=== PATIENT | male | born 1960 | race Caucasian/White ===

== ENCOUNTER → 2020-12-05 | Outpatient (CLI) | payer MEDICARE, OTHER ==
[~2020-12-05] MED LIST: ALLEGRA-D 12 H1 EACH PO; AMLODIPINE BESY10 MG PO; ANORO ELLIPTA1 EACH INH; ASPIRIN 325MG325 MG PO; BREO ELLIPTA 21 EACH INH; BUDESONIDE0.5 MG/2 M NEB; CYCLOBENZAPRINE10 MG PO; DEPO-TESTO200 MG/1 M IM; FLOMAX 0.4 MG0.4 MG PO; FUROSEMIDE20 MG PO; HYDROCHLOROTHIA25 MG PO; HYDROCODON-ACE1 EAC6 PO; IBUPROFEN800 MG PO; IPRAT-ALBUT 0.5-3 ML NEB; ISOSORBIDE MONO30 MG PO; ISOSORBIDE MONO60 MG PO; LEVOTHYROXINE88 MCG PO; LISINOPRIL40 MG PO; LOPRESSOR 25 MG25 MG PO; METFORMIN HCL1000 M1 PO; NITROSTAT0.4 MG SL; PANTOPRAZOLE SO40 MG PO; RESTORIL 30 MG30 MG PO; SIMVASTATIN20 MG PO; TESTOSTERO200 MG/1 M IM; VITAMIN D21250 MCG PO; ZOFRAN4 MG PO; ZYLOPRIM 300 M300 MG PO; ZYRTEC-D TABLE1 EACH PO
== END ==
LOC: HEART 5 10:15
DX: R06.02 Shortness of breath (principal); R94.2 Abnormal results of pulmonary function studies
CPT/HCPCS: 94010; 94729

== ENCOUNTER 2021-02-14 08:39 | Emergency (ER) | payer MEDICARE, OTHER ==
[~2021-02-14 08:39] MED LIST changes: -ANORO ELLIPTA1 EACH INH; -ASPIRIN 325MG325 MG PO; -FLOMAX 0.4 MG0.4 MG PO; -FUROSEMIDE20 MG PO; -ISOSORBIDE MONO30 MG PO; -ISOSORBIDE MONO60 MG PO; -METFORMIN HCL1000 M1 PO; -NITROSTAT0.4 MG SL; -RESTORIL 30 MG30 MG PO; -TESTOSTERO200 MG/1 M IM; -VITAMIN D21250 MCG PO
[2021-02-14 09:25] LABS: HEMOGLOBIN 15.1 gm/dl (14.0-17.5); RED BLOOD COUNT 4.99 M/UL (4.20-5.50); WHITE BLOOD COUNT 5.8 K/UL (4.5-11.0)
[2021-02-14 09:47] LABS: BUN/CREATININE RATIO 13 (0-10)
[2021-02-14] MEDS ORDERED: ANORO ELLIPTA1 EACH INH (12:14)
[2021-02-14] MEDS ORDERED: RESTORIL 30 MG30 MG PO (12:15)
[2021-02-14] MEDS ORDERED: ASPIRIN 325MG325 MG PO (13:20)
[2021-02-14] MEDS ORDERED: FLOMAX 0.4 MG0.4 MG PO (13:21)
[2021-02-14] MEDS ORDERED: VITAMIN D21250 MCG PO (13:22)
[2021-02-14] MEDS ORDERED: TESTOSTERO200 MG/1 M IM (13:25)
== END 2021-02-14 13:50 | disposition left against medical advice (07) ==
LOC: ER1 08:39 → CDU 10:29
PROVIDERS: Physician Assistant
DX: R07.89 Other chest pain (principal); E11.9 Type 2 diabetes mellitus without complications; K21.9 Gastro-esophageal reflux disease without esophagitis; Z20.822 Contact with and (suspected) exposure to COVID-19; I10 Essential (primary) hypertension; J44.9 Chronic obstructive pulmonary disease, unspecified; Z90.49 Acquired absence of other specified parts of digestive tract; Z88.1 Allergy status to other antibiotic agents; Z87.891 Personal history of nicotine dependence
CPT/HCPCS: 71045; 80053; 82550; 82553; 83036; 83874; 83880; 84439; 84443; 84484; 85025; 93005; 99285; G0378; U0002

== ENCOUNTER 2021-02-28 18:43 | Observation (INO) | payer MEDICARE, OTHER ==
[~2021-02-28] VITALS: Ht 180.3 cm; Wt 158.3 kg
[~2021-02-28 18:43] MED LIST changes: +ANORO ELLIPTA1 EACH INH; +ASPIRIN 325MG325 MG PO; +FLOMAX 0.4 MG0.4 MG PO; +RESTORIL 30 MG30 MG PO; +TESTOSTERO200 MG/1 M IM; +VITAMIN D21250 MCG PO
[2021-02-28 19:27] LABS: HEMOGLOBIN 15.4 gm/dl (14.0-17.5); RED BLOOD COUNT 5.01 M/UL (4.20-5.50); WHITE BLOOD COUNT 6.8 K/UL (4.5-11.0)
[2021-02-28 19:54] LABS: BUN/CREATININE RATIO 18 (0-10)
[2021-02-28] MEDS ORDERED: NITROSTAT0.4 MG SL (22:22)
[2021-02-28] MEDS ORDERED: METFORMIN HCL1000 M1 PO (22:23)
[2021-02-28] MEDS ORDERED: FUROSEMIDE20 MG PO (22:24)
[2021-02-28] MEDS ORDERED: IBUPROFEN800 MG PO (22:25)
[2021-02-28] MEDS ORDERED: ISOSORBIDE MONO30 MG PO (22:25)
[2021-03-01 04:48] LABS: BUN/CREATININE RATIO 21 (0-10)
[2021-03-01] MEDS ORDERED: ISOSORBIDE MONO60 MG PO (11:21)
--- NOTE | 2021-03-01 20:24 | NUR ---
waiting on Dr. Oquendo to see if he signs off to pt can be discharged. According to Dr. Oquendo's note it looks like pt is refusing to stay. He will need to sign out AMA. Dr. Oquendo agrees to see him outpatient. Pt came out and ask if I had his papers during another pt hypertensive crisis. I explained it would be a few minutes. Another nurse saw pt with his bag getting on the elevator.
--- NOTE | 2021-03-01 21:01 | NUR ---
waiting to see if the pt returns before I report him leaving AMA. pt does still have a IV in
--- NOTE | 2021-03-01 21:59 | NUR ---
pt has not returned, called house to let her know pt has left without signing AMA papers. Unknown if pt pulled out IV. Did not find it in the room or trash. Will do a IRIS
== END 2021-03-01 20:15 | disposition left against medical advice (07) ==
LOC: ER1 18:43 → M/S 21:13 → CDU 21:13 → M/S 23:23
PROVIDERS: Family Medicine; ADMIT Internal Medicine
DX: R07.9 Chest pain, unspecified (principal); J44.9 Chronic obstructive pulmonary disease, unspecified; G47.33 Obstructive sleep apnea (adult) (pediatric); E11.65 Type 2 diabetes mellitus with hyperglycemia; I10 Essential (primary) hypertension; E03.9 Hypothyroidism, unspecified; G89.29 Other chronic pain; M54.9 Dorsalgia, unspecified; K21.9 Gastro-esophageal reflux disease without esophagitis; F41.9 Anxiety disorder, unspecified; G47.00 Insomnia, unspecified; E66.01 Morbid (severe) obesity due to excess calories; Z20.822 Contact with and (suspected) exposure to COVID-19; Z87.891 Personal history of nicotine dependence; Z79.84 Long term (current) use of oral hypoglycemic drugs; Z79.82 Long term (current) use of aspirin; Z79.899 Other long term (current) drug therapy; Z83.3 Family history of diabetes mellitus; Z82.49 Family history of ischemic heart disease and other diseases of the circulatory system; Z90.49 Acquired absence of other specified parts of digestive tract
CPT/HCPCS: ECHO; 36415; 71046; 80053; 80061; 82550; 82553; 82607; 82962; 83735; 83874; 83880; 84439; 84443; 84484; 84550; 85025; 86140; 93005; 93306; 94760; 99285; G0378; U0002